=== PATIENT | male | born 1975 | race Caucasian/White ===

== ENCOUNTER 2025-02-04 16:14 | Emergency (ER) | payer OTHER ==
[~2025-02-04] VITALS: Ht 175.3 cm; Wt 77.0 kg
[2025-02-04 16:43] LABS: BASOPHILS 1.2 % (0.2-1.2); EOSINOPHILS 11.0 % (0.8-7.0); LYMPHOCYTES 17.0 % (21.8-53.1); MCH 30.6 PG (25.7-32.2); MCHC 33.8 g/dL (32.3-36.5); MCV 90.4 fL (79.0-92.2); MONOCYTES 12.5 % (5.3-12.2); NEUTROPHILS 57.9 % (34.0-67.9); RBC 4.81 M/uL (4.63-6.08)
[2025-02-04] MEDS ORDERED: LABETALOL HCL 20 MG/4 ML VIAL IV ONE (17:00)
[2025-02-04 17:06] LABS: ALCOHOL, MEDICAL <3 mg/dL (<3); ALT (SGPT) 32 U/L (14-59); AST (SGOT) 23 U/L (15-37); GLOMERULAR FILTRATION RATE,EST 51 mL/min (>60); INR 1.01 (0.80-1.30); PROTEIN, TOTAL 7.1 g/dL (6.4-8.2); PROTIME 12.6 Sec (11.2-14.2); UREA NITROGEN 19 mg/dL (7-18)
[2025-02-04] MEDS ORDERED: TOPROL XL50 MG PO (17:46)
[2025-02-04 18:09] VITALS: BP 185/116
== END 2025-02-04 18:09 | disposition home or self-care (01) ==
LOC: ED 16:14
PROVIDERS: Emergency Medicine
DX: R20.2 Paresthesia of skin (principal); I10 Essential (primary) hypertension
CPT/HCPCS: 36415; 70450; 70496; 70498; 80053; 80307; 84484; 85025; 85610; 85730; 96374; 99284-25; G0480; Q9967